=== PATIENT | male | born 1930 | race Caucasian/White ===

== ENCOUNTER 2018-07-31 07:28 | Day surgery (SDC) | payer MEDICARE, BC ==
[2018-07-31] MEDS ORDERED: PROPOFOL 500 MG/50 ML EMU IV ONE (07:50)
[2018-07-31] MEDS ORDERED: ONDANSETRON HCL 4 MG/2 ML SOL ONE (07:50)
[2018-07-31] MEDS ORDERED: MIDAZOLAM 2 MG/2 ML SOL ONE (07:51)
[2018-07-31] MEDS ORDERED: FENTANYL 100MCG/2ML SOL ONE ×2 (07:51→09:58)
[2018-07-31] MEDS ORDERED: BUPIVACAINE/EPI 0.5% 10 ML SOL INFIL ONE (07:59)
[2018-07-31] MEDS ORDERED: CEFAZOLIN SODIUM 1 GM PDS ONE (08:16)
[2018-07-31] MEDS ORDERED: KETOROLAC TROMETHAMINE 30 MG/ML SOL ONE (09:25)
[2018-07-31 10:26] VITALS: TEMP 97.4
[2018-07-31 10:56] VITALS: BP 159/87; PULSE 68; RESP 20; O2SAT 98
== END 2018-07-31 11:30 | disposition home or self-care (01) | DRG 395 ==
LOC: SURG 07:28
PROVIDERS: ATTEND Surgery
DX: K40.90 Unilateral inguinal hernia, without obstruction or gangrene, not specified as recurrent (principal)
CPT/HCPCS: J0690; J1885; J2250; J2405; J3010; A6402; C1781; J2704

== ENCOUNTER 2018-09-13 06:37 | Inpatient (IN) | payer MEDICARE, BC ==
[2018-09-13 07:24] LABS: LACTIC ACID 3.6 mMol/L (0.0-2.0)
[2018-09-13 07:34] LABS: BASOPHILS % (AUTO) 0 % (0-3); EOSINOPHILS % (AUTO) 1 % (0-9); HEMATOCRIT 37 % (39-53); HEMOGLOBIN 12.6 gm/dl (13.5-17.7); LYMPHOCYTES % (AUTO) 14.5 % (10-50); MEAN CORPUSCULAR HEMOGLOBIN 31.5 pg (27.0-32.0); MEAN CORPUSCULAR HGB CONC 33.5 gm/dl (32.0-36.0); MEAN CORPUSCULAR VOLUME 94 fL (80-100); MONOCYTES % (AUTO) 9.3 % (0-12); NEUTROPHILS % (AUTO) 74.4 % (37-80)
[2018-09-13 07:38] LABS: ALBUMIN 3.4 gm/dl (3.4-5.0); BILIRUBIN,TOTAL 0.7 mg/dl (0.2-1.0); CALCIUM 8.3 mg/dl (8.5-10.1); CARBON DIOXIDE 23.6 mEq/L (21-32); CREATININE 1.51 mg/dl (0.80-1.30); POTASSIUM 3.8 mMol/L (3.5-5.1); TOTAL PROTEIN 6.8 gm/dl (6.4-8.2); TROP I 0.04 ng/ml (0.000-0.056)
[2018-09-13 07:54] LABS: INR 1.08 (0.86-1.12)
[2018-09-13 08:13] LABS: APPEARANCE,URINE Clear; BILIRUBIN,URINE NEGATIVE (NEGATIVE); COLOR,URINE Yellow; GLUCOSE, URINE (UA) NEGATIVE (NEGATIVE); KETONES,URINE NEGATIVE (NEGATIVE); LEUKOCYTE ESTERASE ,URINE NEGATIVE (NEGATIVE); NITRATE,URINE NEGATIVE (NEGATIVE); OCCULT BLOOD,URINE TRACE LYSED (NEG-TRACE); UROBILINOGEN,URINE 0.2 (0.2-1.0 EU)
[2018-09-13 08:23] LABS: BACTERIA 1+ (< 1+); CRYSTALS NEGATIVE (0-3 AVE/HPF); RBC,URINE 0-2 (0-3AV/HPF); WBC,URINE 0-2 (0-5AV/HPF)
[2018-09-13] MEDS ORDERED: SODIUM CHLORIDE 0.9% 1000ML 1,000 ML IV ONE (08:30)
[2018-09-13] MEDS ORDERED: ACETAMINOPHEN 500 MG 500 MG TAB PO PRN (13:47)
[2018-09-13] MEDS: SODIUM CHLORIDE 0.9% 1000ML 1,000 ML IV SCH (14:45)
[2018-09-13] MEDS ORDERED: TERAZOSIN HYDROCHLORIDE 1 MG CAP PO SCH (21:00)
[2018-09-14] MEDS: SODIUM CHLORIDE 0.9% 1000ML 1,000 ML IV SCH (04:19)
[2018-09-14 07:24] LABS: LACTIC ACID < 0.8 mMol/L (0.0-2.0)
[2018-09-14 07:37] LABS: BLOOD UREA NITROGEN 13 mg/dl (7-18); CALCIUM 8.3 mg/dl (8.5-10.1); CARBON DIOXIDE 27.5 mEq/L (21-32); CHLORIDE 106 mMol/L (98-107); CREATININE 1.22 mg/dl (0.80-1.30); GLUCOSE 107 mg/dl (74-106); POTASSIUM 3.7 mMol/L (3.5-5.1); SODIUM 142 mMol/L (136-145)
[2018-09-14 08:05] VITALS: PULSE 61; RESP 14; TEMP 98.2; O2SAT 93
[2018-09-14] MEDS ORDERED: FINASTERIDE 5 MG TAB PO SCH (09:00)
[2018-09-14] MEDS ORDERED: LISINOPRIL 20 MG TAB PO SCH (09:00)
[2018-09-14] MEDS ORDERED: AMLODIPINE 5 MG TAB PO SCH (09:00)
[2018-09-14] MEDS ORDERED: ASPIRIN EC 81 MG PO SCH (09:00)
[2018-09-14 13:44] VITALS: BP 159/75
== END 2018-09-14 12:00 | disposition home or self-care (01) | DRG 641 ==
LOC: ED 06:37 → UNDOADMIN 09:43 → ACUTE CARE 09:43
PROVIDERS: ADMIT Family Medicine; ATTEND Family Medicine
PROC: F01K5ZZ Range of Motion and Joint Integrity Assessment of Musculoskeletal System - Upper Back / Upper Extremity (ICD-10-PCS; principal; 2018-09-13)
PROC: F02Z0ZZ Bathing/Showering Assessment (ICD-10-PCS; 2018-09-13)
DX: G45.9 Transient cerebral ischemic attack, unspecified (principal); R32 Unspecified urinary incontinence; R40.2362 Coma scale, best motor response, obeys commands, at arrival to emergency department; R40.2142 Coma scale, eyes open, spontaneous, at arrival to emergency department; R40.2252 Coma scale, best verbal response, oriented, at arrival to emergency department; R29.702 NIHSS score 2; E86.0 Dehydration; R41.82 Altered mental status, unspecified; I10 Essential (primary) hypertension
CPT/HCPCS: 36415; 70450; 70551; 71045; 80048; 80053; 81001; 84484; 85025; 85610; 87040; 93005; 96365; 96366; 99238; 99284; 99285; A9270-GY

== ENCOUNTER 2018-12-13 03:43 | Emergency (ER) | payer MEDICARE, BC, OTHER ==
[2018-12-13] MEDS ORDERED: SODIUM CHLORIDE 0.9% 250 ML 250 ML IV ONE ×3 (04:09→05:10)
[2018-12-13] MEDS ORDERED: DILTIAZEM 5 MG/ML SOL IV ONE ×2 (04:11→04:19)
[2018-12-13 04:14] LABS: BASOPHILS % (AUTO) 1 % (0-3); EOSINOPHILS % (AUTO) 3 % (0-9); HEMATOCRIT 34 % (39-53); HEMOGLOBIN 11.4 gm/dl (13.5-17.7); LYMPHOCYTES % (AUTO) 22.4 % (10-50); MEAN CORPUSCULAR HEMOGLOBIN 31.2 pg (27.0-32.0); MEAN CORPUSCULAR HGB CONC 33.1 gm/dl (32.0-36.0); MEAN CORPUSCULAR VOLUME 94 fL (80-100); MONOCYTES % (AUTO) 10.7 % (0-12); NEUTROPHILS % (AUTO) 62.9 % (37-80)
[2018-12-13] MEDS ORDERED: SODIUM CHLORIDE 0.9% 1000ML 1,000 ML IV SCH (04:15)
[2018-12-13 04:36] LABS: ALKALINE PHOSPHATASE 106 IU/L (46-116); ALT 23 IU/L (14-63); AST 20 IU/L (15-37); BILIRUBIN,TOTAL 0.5 mg/dl (0.2-1.0); BLOOD UREA NITROGEN 23 mg/dl (7-18); CALCIUM 8.4 mg/dl (8.5-10.1); CARBON DIOXIDE 22.9 mEq/L (21-32); CHLORIDE 105 mMol/L (98-107); CREATININE 1.52 mg/dl (0.80-1.30); GLUCOSE 147 mg/dl (74-106); MAGNESIUM 1.8 mg/dl (1.8-2.4); POTASSIUM 4.1 mMol/L (3.5-5.1); SODIUM 139 mMol/L (136-145); TOTAL PROTEIN 6.3 gm/dl (6.4-8.2); TROP I < 0.017 ng/ml (0.000-0.056)
[2018-12-13 04:41] LABS: INR 1.09 (0.86-1.12)
[2018-12-13 05:06] LABS: APPEARANCE,URINE Clear; BILIRUBIN,URINE NEGATIVE (NEGATIVE); COLOR,URINE Yellow; GLUCOSE, URINE (UA) NEGATIVE (NEGATIVE); KETONES,URINE NEGATIVE (NEGATIVE); LEUKOCYTE ESTERASE ,URINE NEGATIVE (NEGATIVE); NITRATE,URINE NEGATIVE (NEGATIVE); OCCULT BLOOD,URINE TRACE INTACT (NEG-TRACE); UROBILINOGEN,URINE 0.2 (0.2-1.0 EU)
[2018-12-13] MEDS ORDERED: AMIODARONE 50 MG/ML 600 MG in DEXTROSE 250 ML 250 ML IV ONE (05:06)
[2018-12-13] MEDS ORDERED: METOPROLOL TARTRATE 50 MG TAB PO ONE (05:09)
[2018-12-13] MEDS ORDERED: AMIODARONE 50 MG/ML SOL ONE (05:12)
[2018-12-13 05:16] LABS: CRYSTALS NEGATIVE (0-3 AVE/HPF); EPITHELIAL CELLS NEGATIVE (SQUAMOUS); RBC,URINE 0-1 (0-3AV/HPF); WBC,URINE NEG (0-5AV/HPF)
[2018-12-13 05:17] LABS: BACTERIA TRACE (< 1+)
[2018-12-13] MEDS ORDERED: MAGNESIUM SULFATE 5 GM/10 ML SOL IV ONE (05:19)
[2018-12-13] MEDS ORDERED: DIGOXIN 0.25 MG/ML SOL IV ONE (05:20)
[2018-12-13] MEDS ORDERED: MAGNESIUM SULFATE 5 GM/10 ML SOL ONE (05:27)
[2018-12-13] MEDS ORDERED: METOPROLOL TARTRATE 25 MG TAB ONE (05:27)
[2018-12-13] MEDS ORDERED: DIGOXIN 0.25 MG/ML SOL ONE (05:35)
[2018-12-13 06:00] VITALS: TEMP 97.6
[2018-12-13 06:20] VITALS: RESP 16; O2SAT 97
[2018-12-13 06:33] VITALS: BP 106/75; PULSE 122
== END 2018-12-13 06:51 | disposition short-term general hospital (02) | DRG 884 ==
LOC: ED 03:43
DX: R40.4 Transient alteration of awareness (principal); G45.9 Transient cerebral ischemic attack, unspecified; R06.02 Shortness of breath; I48.2 Chronic atrial fibrillation; I95.9 Hypotension, unspecified; R09.02 Hypoxemia; E86.0 Dehydration
CPT/HCPCS: 36415; 71045; 80053; 81001; 83735; 83880; 84443; 84484; 85025; 85610; 85730; 93005; 96365; 96366; 96374; 96375; 99070; 99291; 99292; J0282; J1160; J3475; A9270-GY; J3490

== ENCOUNTER 2019-01-19 05:00 | Inpatient (IN) | payer OTHER, MEDICARE, BC ==
[2019-01-19] MEDS: SODIUM CHLORIDE 0.9% 1000ML 1,000 ML IV SCH ×2 (05:55→15:18)
[2019-01-19 06:13] LABS: BASOPHILS % (AUTO) 0 % (0-3); EOSINOPHILS % (AUTO) 1 % (0-9); HEMATOCRIT 37 % (39-53); HEMOGLOBIN 12.1 gm/dl (13.5-17.7); LYMPHOCYTES % (AUTO) 6.1 % (10-50); MEAN CORPUSCULAR HEMOGLOBIN 31.6 pg (27.0-32.0); MEAN CORPUSCULAR HGB CONC 32.8 gm/dl (32.0-36.0); MEAN CORPUSCULAR VOLUME 96 fL (80-100); MONOCYTES % (AUTO) 7.2 % (0-12); NEUTROPHILS % (AUTO) 85.6 % (37-80)
[2019-01-19 06:24] LABS: APPEARANCE,URINE Clear; BILIRUBIN,URINE NEGATIVE (NEGATIVE); COLOR,URINE Yellow; GLUCOSE, URINE (UA) NEGATIVE (NEGATIVE); KETONES,URINE NEGATIVE (NEGATIVE); LEUKOCYTE ESTERASE ,URINE NEGATIVE (NEGATIVE); NITRATE,URINE NEGATIVE (NEGATIVE); OCCULT BLOOD,URINE 1+ (NEG-TRACE); UROBILINOGEN,URINE 0.2 (0.2-1.0 EU)
[2019-01-19 06:32] LABS: ALBUMIN 3.2 gm/dl (3.4-5.0); BILIRUBIN,TOTAL 0.7 mg/dl (0.2-1.0); CALCIUM 8.2 mg/dl (8.5-10.1); CREATININE 1.48 mg/dl (0.80-1.30); CRP INFLAMMATORY 0.05 mg/dl (0.00-0.33); TOTAL PROTEIN 6.5 gm/dl (6.4-8.2); TROP I 0.027 ng/ml (0.000-0.056)
[2019-01-19 06:41] LABS: BACTERIA NEGATIVE (< 1+); CRYSTALS NEGATIVE (0-3 AVE/HPF); EPITHELIAL CELLS 0-3 (SQUAMOUS); RBC,URINE NEG (0-3AV/HPF); WBC,URINE NEG (0-5AV/HPF)
[2019-01-19 06:42] LABS: CARBON DIOXIDE 24.9 mEq/L (21-32)
[2019-01-19] MEDS ORDERED: PIPERACILLIN/TAZOBACT 3.375 GM PDS IV ONE ×4 (06:49→23:47)
[2019-01-19] MEDS ORDERED: SODIUM CHLORIDE 0.9% FLUSH 10 ML SOL IV PRN (07:09)
[2019-01-19] MEDS: PIPERACILLIN/TAZOBACT 3.375 GM 3 GM in SODIUM CHLORIDE 0.9% 100 ML 100 ML IV SCH ×3 (07:34→18:35)
[2019-01-19 07:53] LABS: SEDIMENTATION RATE 9 mm/hr (0-15)
[2019-01-19] MEDS ORDERED: TRAMADOL HYDROCHLORIDE 50 MG TAB PO PRN (11:45)
[2019-01-19] MEDS ORDERED: ACETAMINOPHEN 500 MG 500 MG TAB PO PRN (11:45)
[2019-01-19] MEDS: AMLODIPINE 5 MG TAB PO SCH (12:24)
[2019-01-19] MEDS: METOPROLOL TARTRATE 25 MG TAB PO SCH ×2 (12:24→20:15)
[2019-01-19] MEDS: LISINOPRIL 20 MG TAB PO SCH (12:25)
[2019-01-19] MEDS ORDERED: SODIUM CHLORIDE 0.9% 100 ML 100 ML IV ONE ×3 (12:31→23:47)
[2019-01-19 17:07] VITALS: RESP 16
[2019-01-19] MEDS ORDERED: TERAZOSIN HCL 10 MG PO SCH (21:00)
[2019-01-20] MEDS: SODIUM CHLORIDE 0.9% 1000ML 1,000 ML IV SCH ×2 (00:02→09:52)
[2019-01-20] MEDS: PIPERACILLIN/TAZOBACT 3.375 GM 3 GM in SODIUM CHLORIDE 0.9% 100 ML 100 ML IV SCH (00:03)
[2019-01-20] MEDS: PIPERACILLIN/TAZOBACT 3.375 GM 3.375 GM in SODIUM CHLORIDE 0.9% 100 ML 100 ML IV SCH ×2 (05:34→12:13)
[2019-01-20 07:02] LABS: LACTIC ACID 0.9 mMol/L (0.0-2.0)
[2019-01-20 07:14] LABS: CALCIUM 7.6 mg/dl (8.5-10.1); CARBON DIOXIDE 27.5 mEq/L (21-32); CREATININE 1.54 mg/dl (0.80-1.30)
[2019-01-20 07:18] LABS: BASOPHILS % (AUTO) 1 % (0-3); EOSINOPHILS % (AUTO) 2 % (0-9); HEMATOCRIT 34 % (39-53); HEMOGLOBIN 10.8 gm/dl (13.5-17.7); LYMPHOCYTES % (AUTO) 25.3 % (10-50); MEAN CORPUSCULAR HEMOGLOBIN 31.3 pg (27.0-32.0); MEAN CORPUSCULAR HGB CONC 32.2 gm/dl (32.0-36.0); MEAN CORPUSCULAR VOLUME 97 fL (80-100); MONOCYTES % (AUTO) 12.8 % (0-12); NEUTROPHILS % (AUTO) 58.9 % (37-80)
[2019-01-20 08:42] VITALS: BP 157/79; PULSE 54; TEMP 98.4; O2SAT 94
[2019-01-20] MEDS: AMLODIPINE 5 MG TAB PO SCH (08:44)
[2019-01-20] MEDS: LISINOPRIL 20 MG TAB PO SCH (08:44)
[2019-01-20] MEDS: METOPROLOL TARTRATE 25 MG TAB PO SCH (08:46)
== END 2019-01-20 15:20 | disposition home or self-care (01) | DRG 948 ==
LOC: ED 05:00 → ACUTE CARE 07:13
PROVIDERS: ADMIT Family Medicine; ATTEND Family Medicine
DX: R41.82 Altered mental status, unspecified (principal); E86.0 Dehydration; R40.2412 Glasgow coma scale score 13-15, at arrival to emergency department
CPT/HCPCS: 36415; 70450; 71045; 80048; 80053; 81001; 82550; 83605; 83880; 84484; 85025; 85651; 86140; 87040; 93005; 96365; 99070; 99221; 99285; J2543; A9270-GY